=== PATIENT | male | born 1950 | race Caucasian/White ===

== ENCOUNTER 2019-07-18 10:32 | Inpatient (IN) | payer MEDICARE ==
--- NOTE | 2019-07-18 10:51 | ED.PDOC ---
History of Present Illness - General Stated Complaint: swollen testicles Time Seen by Provider: 07/18/19 10:44 Source: patient, RN notes reviewed, Vital Signs reviewed, family Exam Limitations: no limitations Additional Information: this is a 68-year-old gentleman who presents to the emergency room with complaints of swollen testicles. He was going to the clinic and was sent here. He has not been seen in 30 years for any health issues. He states that approximately one month ago he began having swelling in his feet and thought that it may be gout. He started altering his diet and then noticed that in the last 2 weeks he began having abdominal swelling. Today he is most concerned because his scrotum has been swollen. He denies any difficulty with urination currently. His aopkvguo-xw-hdm who is with him today has also noticed that his eyes were getting yellow in the past month. The patient lives alone and has 2 sons and is currently . He is retired from the construction field. He admits to drinking alcohol daily until about 2 months ago. He oftentimes drank in the mornings as well. His alcohol of choice was vodka. He hasn't smoked in over 20 years. He denies any pain currently and denies having recent fever or chills. - History of Present Illness Allergies/Adverse Reactions: Allergies NO KNOWN ALLERGY Allergy (Verified 07/18/19 10:47) Home Medications: Ambulatory Orders NK 07/18/19 Review of Systems - Review of Systems Constitutional: States: malaise. Denies: chills, fever EENTM: States: no symptoms reported, other - family noticed eyes were turning yellow Respiratory: States: no symptoms reported. Denies: cough, orthopnea, short of breath, wheezing Cardiology: States: edema. Denies: chest pain, palpitations, syncope Gastrointestinal/Abdominal: States: diarrhea - just this morning. Denies: abdominal pain, nausea, vomiting Genitourinary: States: other - scrotal swelling. Denies: discharge, frequency, pain Musculoskeletal: Denies: joint pain, joint swelling, muscle pain, muscle stiffness Skin: States: change in color Neurological: States: no symptoms reported Endocrine: States: unexplained weight gain, other - approximately 20 pounds Hematologic/Lymphatic: States: no symptoms reported All other Systems: Reviewed and Negative Family Medical History - Family History Mother Family History: No Known Physical Exam - Physical Exam General Appearance: Alert, No apparent distress Eyes, Ears, Nose, Throat Exam: PERRL/EOMI, scleral icterus (L), other - oropharynx is dry Neck: non-tender, full range of motion, supple, normal inspection Cardiovascular/Respiratory: regular rate, rhythm, no M/R/G, normal peripheral pulses, normal breath sounds, no respiratory distress Gastrointestinal/Abdominal: normal bowel sounds, no pulsatile mass, distended, other - noted ascites Rectal Exam: deferred Male Genital Exam: other - marked scrotal swelling, penis is retracted Back Exam: normal inspection, no CVA tenderness, no vertebral tenderness Extremity: pedal edema, swelling, other - 3+ pitting edema bilaterally Neurologic: cap coverer II-XII nml as tested, no motor/sensory deficits, alert, normal mood/affect, oriented x 3 Skin Exam: warm/dry, jaundice - mild Lymphatic: no adenopathy Progress - Progress Progress: 07/18/19 14:08 discussed everything with the patient and his family. All results are back now. Appears that the primary etiology of his issues is the liver. More than likely alcoholic liver disease. The prognosis and timeframe for which consultations will occur. Smith Abreu nurse practitioner has agreed to admit to the hospital. Get further diuresis. Beckman catheter will need to be inserted. I've ordered an ammonia level on him as well. - Results/Orders Results/Orders: Laboratory Tests 07/18/19 07/18/19 07/18/19 11:30 11:30 12:10 WBC 10.5 RBC 3.82 L Hgb 12.6 L Hct 38.1 L MCV 99.7 H MCH 33.1 H MCHC 33.2 RDW 14.2 Plt Count 205 MPV 7.8 Absolute Neuts (auto) Not Reportable Absolute Lymphs (auto) Not Reportable Absolute Monos (auto) Not Reportable Absolute Eos (auto) Not Reportable Neutrophils % Not Reportable Neutrophils % (Manual) 87.0 H Lymphocytes % Not Reportable Lymphocytes % (Manual) 8.0 Monocytes % Not Reportable Monocytes % (Manual) 5.0 Eosinophils % Not Reportable Basophils % Not Reportable Toxic Granulation 2+ Platelet Estimate Normal Sodium 130 L Potassium 3.0 L Chloride 90 L Carbon Dioxide 24 Anion Gap 19.0 H BUN 10 Creatinine 0.77 BUN/Creatinine Ratio 13.0 Random Glucose 102 Serum Osmolality 260.0 L Lactic Acid Calcium 8.6 Total Bilirubin 3.5 H* AST 64 H ALT 29 Alkaline Phosphatase 172 H Serum Total Protein 6.9 Albumin 2.9 L Globulin 4.0 H Albumin/Globulin Ratio 0.7 L Lipase 17 L Urine Color Urine Appearance Urine pH Ur Specific [place] Urine Protein Urine Glucose (UA) Urine Ketones Urine Blood Urine Nitrite Urine Bilirubin Urine Urobilinogen Ur Leukocyte Esterase Urine RBC Urine WBC Ur Epithelial Cells Urine Bacteria Hyaline Casts Urine Mucus 07/18/19 07/18/19 12:10 13:00 WBC RBC Hgb Hct MCV MCH MCHC RDW Plt Count MPV Absolute Neuts (auto) Absolute Lymphs (auto) Absolute Monos (auto) Absolute Eos (auto) Neutrophils % Neutrophils % (Manual) Lymphocytes % Lymphocytes % (Manual) Monocytes % Monocytes % (Manual) Eosinophils % Basophils % Toxic Granulation Platelet Estimate Sodium Potassium Chloride Carbon Dioxide Anion Gap BUN Creatinine BUN/Creatinine Ratio Random Glucose Serum Osmolality Lactic Acid 2.8 H* Calcium Total Bilirubin AST ALT Alkaline Phosphatase Serum Total Protein Albumin Globulin Albumin/Globulin Ratio Lipase Urine Color Yellow Urine Appearance Clear Urine pH 7.5 Ur Specific [place] 1.015 Urine Protein Negative Urine Glucose (UA) Negative Urine Ketones Trace Urine Blood Negative Urine Nitrite Negative Urine Bilirubin Small H Urine Urobilinogen 0.2 Ur Leukocyte Esterase Negative Urine RBC 0-1 Urine WBC 1-3 Ur Epithelial Cells 0-1 Urine Bacteria Rare Hyaline Casts 0-1 Urine Mucus Trace IMPRESSION: 1. Large volume of ascites in the abdomen and pelvis with displacement of peritoneal and retroperitoneal structures. No evidence of hemorrhage. 2. Average to small size of the liver with enlarged left lobe relative to the right lobe, steatosis, and partial lobulation of the capsule could represent cirrhosis. Possible gastric and lower esophageal varices. 3. 5 mm stone in the midline collecting system of the left kidney with no signs of obstruction. No bowel obstruction. Distal colonic diverticulosis with no complications. 4. Large bilateral inguinal hernias containing ascites. Inferior extent determined. 5. Significant canal and bilateral foraminal narrowing at L5- S1 with spondylosis. Electronically signed by: Augusto Del Cid MD 07/18/2019 1:14 PM MUD ENGINEER Departure - Departure Clinical Impression: Ascites of liver, Alcoholic cirrhosis of liver with ascites, Hypokalemia, Hyponatremia Disposition: Admit Patient Condition: Fair Referrals: MAISHA ECHEVARRIA IV, SALES EXPERT [Primary Care Provider] - 1-2 Weeks Home Medications: Ambulatory Orders NK 07/18/19 Decision To Admit - Decistion To Admit Decision to Admit Date: 07/18/19 Decision to Admit Time: 14:11
[2019-07-18] MEDS ORDERED: FUROSEMIDE INJ 40 MG/4 ML VIAL IV ONE (11:12)
--- NOTE | 2019-07-18 12:54 | RAD ---
EXAM DESCRIPTION: Chest,1 View: CR/DR/XR. CLINICAL HISTORY: 68 years Male sob COMPARISON: CT scan of abdomen and pelvis on this visit. TECHNIQUE: ONE VIEW PORTABLE. 1141 hours AP, upright position. FINDINGS: Bilateral lung volumes are decreased. Bilateral basilar atelectasis. Bronchovascular markings are crowded in heart appears enlarged but this may be artifactual due to poor inspiratory effort. Pulmonary vascularity is not increased. No pleural effusion or pneumothorax. No acute bony thoracic abnormality. IMPRESSION: Limited study due to poor inspiratory effort. Atelectasis in the bases. No definite infiltrate or effusion. Pulmonary vascularity is not increased. No pulmonary edema. Electronically signed by: Augusto Del Cid MD 07/18/2019 12:52 PM AUTO MECHANIC APPRENTICE
--- NOTE | 2019-07-18 13:15 | CT ---
EXAM DESCRIPTION: Abdoment/Pelvis w/o Contrast: Computed Tomography. CLINICAL HISTORY: 68 years Male ascites, . Abdominal pain and distention. COMPARISON: Portable chest x-ray today TECHNIQUE: Spiral-axial scans 5 x 5 mm intervals through the abdomen and pelvis without oral or IV contrast. Coronal and sagittal 2.0 mm reconstructions. Total Exam DLP: 1421.5 mGy-cm. This exam was performed according to our departmental CT dose-optimization program which includes automated exposure control, adjustment of the mA and/or kV according to patient size and/or use of iterative reconstruction technique; to reduce radiation dose to as low as reasonably achievable (ALARA). FINDINGS: Mesentery: Ascitic fluid in all 4 quadrants of the abdomen and in the midline anterior pelvis in the anterior peritoneal reflection. Abdominal organs in the peritoneal cavity are displaced into the midline. No free air. Fascial thickening adjacent fatty stranding throughout. Lung bases and pleura: Bilateral small pleural effusions. Bibasilar atelectasis more on the left. Bilateral pleural-parenchymal scarring in the lower lobes. Diffuse coronary artery atherosclerotic calcification. Included thoracic aorta with atherosclerotic calcification. No significant cardiac enlargement. Possible esophageal varices. Liver, stomach, spleen, and adrenal glands: Craniocaudal dimension right lobe liver 14.9 cm. Left lobe almost this largest the right lobe. Sporadic lobulation of the liver capsule. Heterogeneous fatty density of the liver. The "caudate lobe" posterior to the saray hepatis shows minimal low-density with other areas of low-density most likely fatty sparing. Small gastric hiatal hernia. Possible gastric varices. Adrenal glands and spleen negative findings. Pancreas, Gallbladder, and Ducts: Gallbladder with radiodense francis slightly dilated. Pancreatic duct not well seen. Diffuse low-density of the pancreas. Kidneys and Ureters: 4.7 x 5 mm stone in the mid collecting system of the left kidney with no hydronephrosis. Minimal pararenal stranding. Normal caliber of the included left ureter. No radiodense stones or hydronephrosis left kidney with no radiodense stones or hydronephrosis. Left ureter is unremarkable. Aorta: Moderate atherosclerotic calcification of the aorta with normal caliber of the outer margin and atherosclerotic calcification of the major branch vessels extending into the bilateral common iliac arteries. Small Bowel: Small bowel is displaced into the midline with edema in the mesentery. Gas predominantly in the anterior segments. No significant distention or air-fluid levels. Terminal Ileum/Cecum: Slightly displaced toward the midline. Normal caliber cecum and TI. Appendix not seen. Colon: Displaced intraperitoneal segments along with other intraperitoneal organs. Minimal fecal matter which has heterogeneous radiodensity. Diverticula in the mid descending colon sigmoid containing radiodense fecal matter. None moderate redundancy of the sigmoid colon. Fluid in the cul-de-sac is displacing the retroperitoneal rectum. Pelvic Organs: No significant distention of the urinary bladder with no radiodense stones. Prostate gland abutting the base of the urinary bladder and the seminal vesicles. Spine and Bony Pelvis: Minimal spondylosis included lower thoracic disc spaces with canal and foraminal narrowing. Advanced spondylosis L5-S1 with significant canal and bilateral foraminal narrowing. Abdominal Wall/Back Soft Tissues: Bilateral large fatty hernias containing peritoneal fat and fluid. Diastases of the umbilicus containing fluid but no bowel. IMPRESSION: 1. Large volume of ascites in the abdomen and pelvis with displacement of peritoneal and retroperitoneal structures. No evidence of hemorrhage. 2. Average to small size of the liver with enlarged left lobe relative to the right lobe, steatosis, and partial lobulation of the capsule could represent cirrhosis. Possible gastric and lower esophageal varices. 3. 5 mm stone in the midline collecting system of the left kidney with no signs of obstruction. No bowel obstruction. Distal colonic diverticulosis with no complications. 4. Large bilateral inguinal hernias containing ascites. Inferior extent determined. 5. Significant canal and bilateral foraminal narrowing at L5-S1 with spondylosis. Electronically signed by: Augusto Del Cid MD 07/18/2019 1:14 PM TRACK ANNOUNCER
--- NOTE | 2019-07-18 14:28 | HP ---
SUPERVISING PHYSICIAN: Gorge Meyer MD CHIEF COMPLAINT: Lower extremity edema, swelling of testicles and increasing shortness of breath. HISTORY OF PRESENT ILLNESS: Mr. Celeste is a 68-year-old, male patient that presented to the Emergency Room complaining of swollen testicles. He endorsed that he gone to the walk-in clinic with Madhu Mares and after examination, he was sent to the Emergency Room for evaluation. He does note that he has not seen a primary care provider in well over 25 to 30 years. He first noted that he had swelling about a month ago in his feet and was concerned it might be gout. He started changing his diet and then noticed in the last two weeks that his abdomen had started swelling severely and he is becoming short of breath. His biggest concern was swelling in the scrotum. He denied actual difficulty urinating. His wkppfbhw-lw-cob noted about a month ago he started showing yellow around his eyes. He does have a significant history of alcohol consumption, particularly vodka, but quit drinking about two months previously when he first started noting that his eyes were turning yellow. He reports that he generally drank alcohol in the form of vodka on a daily basis starting early in the morning. He denied any actual issues trying to stop drinking too much previously. He has not smoked since his early 20s. He denies any actual abdominal pain, chills, fevers, chest pain, nausea or vomiting. He does note he has been having some diarrhea since his belly has been increased in size. CT of his abdomen and pelvis without contrast showed a large volume of ascites in the abdomen and pelvis with displacement of the peritoneal and retroperitoneal structures, but no evidence of any hemorrhage. The liver was noted to be small to average in size with enlarged left lobe relative to the right lobe with noted steatosis and partial lobulation of the capsule, likely representing cirrhosis. There was note of possible gastric and lower esophageal varices. The patient denies any actual hematemesis or hematochezia. He is also noted to have large bilateral inguinal hernias containing ascites. His lab work showed elevated bilirubin of 3.5 with elevated AST at 64, but a normal ALT normal at 29. Alkaline phosphatase was elevated at 172. He had a normal ammonia level and lipase level. He was hyponatremic with sodium of 130 with potassium 3.0 with mildly elevated anion gap at 19. Creatinine was 0.77. Given the findings on CT with the increased swelling and increased ascites, the patient is going to be admitted for further workup evaluation and possible paracentesis in the morning by Dr. Oates, awaiting surgical consultation. He is admitted in stable condition. PAST MEDICAL HISTORY: He is not currently seen by any primary care physician with no significant medical history other than alcohol abuse. PAST SURGICAL HISTORY: 1. Tonsillectomy as a child. HOME MEDICATIONS: No current prescription medications or [id number]-azmkccm medications. ALLERGIES: NO LISTED DRUG OR FOOD ALLERGIES. FAMILY HISTORY: His father is at age 87 with history of cardiovascular disease and congestive heart failure. His mother is living at age 82 and has history of lupus and cardiovascular disease. He has one brother with an unknown history and he has one sister that had a stroke at age 62 and is currently living. He has two sons that are both reported healthy. SOCIAL HISTORY: The patient lives by himself in [place], [place]. He does have a significant alcohol abuse history in the form of vodka typically starting early in the morning. His last reported alcohol consumption was two months previously. He has a very remote history of tobacco use in his 20s. He is a retired [employer] Res[employer]ist. He is . He has two socwdnfxe-iw-hil that check on him on a regular basis. He did work in construction prior to retiring. REVIEW OF SYSTEMS: CONSTITUTIONAL: Negative for any fevers, chills. He does have some generalized malaise and increased weight gain due to the developing ascites. HEENT: He has noted some yellowing of his eyes, but denies any vision changes, headaches, sore throat, nasal congestion, earaches. RESPIRATORY: Denies coughing, orthopnea, shortness of breath, wheezing, but does have some dyspnea on exertion. CARDIOVASCULAR: Noted developing bilateral pitting edema to the lower extremities within the last several months. Negative for chest pain, palpitations or syncopal episodes. GASTROINTESTINAL: As noted in history of present illness, some diarrhea, increasing abdominal girth due to ascites. He denies any abdominal pain, nausea or vomiting. GENITOURINARY: As noted in history of present illness, acute swelling of his scrotum. He denies any pain, difficulty urinating, dysuria, hematuria, polyuria. PHYSICAL EXAMINATION: HEENT: Oropharynx is pink with mildly dry mucous membranes. There was noted bilateral scleral icterus. NECK: Supple, nontender with full range of motion. RESPIRATORY: Chest sounds clear, just diminished towards the bases. No obvious rhonchi, wheezing or rales. CARDIOVASCULAR: Regular rate and rhythm without any appreciable murmurs, gallops, or rubs. ABDOMEN: Notably distended and firm with positive bowel sounds. No rebound tenderness, no point tenderness. EXTREMITIES: Bilateral 3+ pitting edema to lower extremities with notable erythema to the bilateral wang areas. Warm to touch. GENITOURINARY: He has marked scrotal swelling with retracted penis, but Beckman catheter is in place. No signs of cellulitis or infection. BACK: No CVA or vertebral tenderness. NEUROLOGIC: The patient is oriented times three. Cranial nerves II-XII are grossly intact. There are no obvious motor deficits. SKIN: Warm and dry with mild jaundice. LYMPHATICS: Without any obvious adenopathy. LABORATORY: White count 10,500 without a left shift. Hemoglobin 12.6, hematocrit 38.1, RBC indices indicating a hyperchromic/microcytic presentation, platelet count 205,000. Coagulation studies showed PT 12.7, INR 1.27, normal PTT at 28.3. Chemistry showed sodium 130, potassium 3.0, chloride 90, carbon dioxide 24, anion gap slightly elevated at 29, creatinine 0.7, blood sugar 102. Lactic acid slightly elevated at 2.8, bilirubin elevated at 3.5, AST 64, alkaline phosphatase 172, normal ALT 29. Ammonia level normal at 20, lipase normal at 17. RADIOLOGY: Abdominopelvic CT without contrast showed large volume of ascites in the abdomen and pelvis with displacement of the peritoneal and retroperitoneal structures with no evidence of hemorrhage. There was note of an average to small liver with enlarged left lobe compared to the right with steatosis and partial lobulation of the capsule, probably representing cirrhosis with possible gastric and lower esophageal varices. There was note of a 5 mm stone in the midline collecting system of the left kidney with no signs of obstruction, no bowel obstruction, distal colonic diverticulosis with no complication. There is note of large bilateral inguinal hernias containing ascites with inferior extent determined. Please see that report for details. He also had a chest x-ray and per radiologic interpretation showed limited study due to poor inspiratory effort with atelectasis in the bases with no definite infiltrate or effusion. Pulmonary vascularity was not increased. No pulmonary edema. ASSESSMENT: 1. Ascites likely due to alcoholic cirrhosis of the liver resulting in some scrotal edema and bilateral lower extremity edema. 2. Bilateral lower extremity edema with developing cellulitis. 3. Electrolyte imbalance to include hyponatremia, hypokalemia and increased anion gap with a mild lactic acidosis due to #1. 4. History of chronic alcohol abuse. PLAN: Mr. Celeste is going to be admitted for initiation of treatment for worsening cellulitis and testicular edema. We will start him on some spironolactone 100 mg daily along with 40 mg Lasix IV. I requested a surgical consult with Dr. Oates for paracentesis for both therapeutic and diagnostic reasons. I started him on Rocephin 2 grams given the degree of ascites along with mild cellulitis of lower extremities. If his cellulitis does not improve, we may need to start him on some vancomycin, but we will hold off and reassess in the morning. He does have a Beckman catheter in place. We will monitor his I&O closely. He will be on a reduced sodium diet. He will be on DVT prophylaxis per protocol starting tomorrow after the paracentesis. I anticipate his length of stay to be at least two to three days. I did discuss at length with the patient and his pidhwvugt-uh-aqr that he needs to get established with a primary care provider, either here in town or provider of choice. They are going to look at going to [facility] as well as he will need to be established with a GI specialist of the ongoing ascites and liver issues. Hopefully we can improve his symptoms in the next 24 to 48 hours and get him home to have close followup. Until we can discharge to outpatient management, we will continue to monitor and treat as needed. #[id number] [facility]
[2019-07-18] MEDS ORDERED: SODIUM CHLORIDE 0.9% (FLUSH) 10 ML SYG IV PRN (17:12)
[2019-07-18] MEDS ORDERED: SPIRONOLACTONE 25 MG TAB PO ONE (17:16)
[2019-07-18] MEDS ORDERED: IV SET AND CAP CHANGE INJ INJ SCH (17:30)
[2019-07-18] MEDS ORDERED: SODIUM CHL 0.9% 50ML MIN-BAG+ 50 ML IVPB ONE (18:25)
[2019-07-18] MEDS: cefTRIAXone SODIUM 2 GM in SODIUM CHL 0.9% 100ML MINI-BAG 100 ML IVPB SCH (18:28)
[2019-07-19] MEDS ORDERED: POTASSIUM CHLORIDE 20 MEQ TAB PO ONE (09:08)
[2019-07-19] MEDS ORDERED: POTASSIUM CHLORIDE 20 MEQ TAB ONE (09:28)
--- NOTE | 2019-07-19 15:15 | US ---
EXAM DESCRIPTION: Paracentesis: Ultrasound CLINICAL HISTORY: ascites COMPARISON: CT scan abdomen and pelvis 18 July 2019. TECHNIQUE: The procedure was performed by Dr. Oates. Sterile preparation and technique.. Skin was marked overlying the left lower quadrant fluid collection, where needle was introduced. 8.4 L removed. FINDINGS: Images before the procedure show large amount of ascites in all 4 quadrants. Images taken during the procedure show the echogenic needle in the left lower quadrant and collection with significant reduction of fluid in the quadrant, by the end of the procedure. IMPRESSION: Successful, ultrasound-guided paracentesis. Over 8 L of fluid was removed. Electronically signed by: Augusto Del Cid MD 07/19/2019 3:14 PM LEAN ENGINEER
--- NOTE | 2019-07-19 16:00 | CONS ---
REFERRING PHYSICIAN: Hospitalist Service HISTORY OF PRESENT ILLNESS: The patient is a 68 year-old male who presented with a swollen scrotum. He notes also that his abdomen is distended. He has swelling in his legs and he has had increasing shortness of breath. He has not seen a doctor in many years. He has a long history of alcohol abuse, which he quit 2 months ago. Family notes that his eyes turned yellow about a month ago. The CT scan of his abdomen showed steatosis of the liver with lobulation and a significant amount of ascites and bilateral inguinal hernias obtaining ascites. PAST MEDICAL HISTORY: Unremarkable. He had a tonsillectomy as a child. CURRENT MEDICATIONS: None. ALLERGIES: No known drug allergies. FAMILY HISTORY: Positive for cardiovascular disease, lupus and sister who had a stroke. His sons are healthy. SOCIAL HISTORY: The patient lives by himself in [facility]. He is the father of two adult children. Until 2 months ago, he drank alcohol on a daily basis, usually vodka. He has smoked only as a young person. He is . He worked in construction, has retired. REVIEW OF SYSTEMS: GENERAL: There has been weight gain, no fever or chills. HEENT: He has had no changes in his vision, headache, no coughing. RESPIRATORY: Minimal shortness of breath or wheezing but he does become short of breath with any exercise HEART: Regular rate and rhythm. ABDOMEN: No change in his bowel habit, blood per rectum, melanotic stools and no bloody vomitus. EXTREMITIES: Bilateral pitting edema. PHYSICAL EXAMINATION: GENERAL: The patient is awake, alert and cooperative, in no acute distress. HEENT: Sclera are icteric. Oropharynx is pink with moist mucous membranes. NECK: Without adenopathy. CHEST: There is equal breath sounds bilaterally. HEART: Regular rate and rhythm. ABDOMEN: Soft, firm, positive fluid wave. Positive bowel sounds. EXTREMITIES: 3+ pitting edema bilaterally in the lower extremities. : Exam reveals scrotal swelling with fluid in his scrotum. Testicles are not easily able to be examined. NEUROLOGIC: The patient is awake and oriented. BACK: Without CVA tenderness. LABORATORY: White count on admission 10.5,000 with hemoglobin 12, hematocrit 38. He had a hyperchromatic microcytic presentation. Platelet count 205,000, coag studies show PT elevated at 12.7 and INR at 1.27. Creatinine 0.7, potassium 3, bilirubin 3.5. AST and ALT are both elevated. Ammonia level normal. as was lipase. IMPRESSION: Cirrhosis, likely alcoholic, possibly secondary to fatty infiltration of liver and mesh but with symptomatic ascites. The risks, benefits, and alternatives to both diagnostic and therapeutic thoracentesis is discussed with the patient and his family and we will proceed later today. #[id number] [facility]
--- NOTE | 2019-07-19 16:39 | OP ---
PREOPERATIVE DIAGNOSIS: Symptomatic ascites secondary to cirrhosis of uncertain etiology. POSTOPERATIVE DIAGNOSIS: Symptomatic ascites secondary to cirrhosis of uncertain etiology. PROCEDURE: Ultrasound guided paracentesis. SURGEON: Williams Oates MD MEDICAL DETAILIST: None. ANESTHESIA: Local infiltration of 1% lidocaine. INDICATION: The patient is a 68 year-old male who presented with bilateral edema, swollen scrotum and extended abdomen with weight gain. Workup has revealed ascites and what appears to be cirrhosis. He has had no previous healthcare over the last 20 to 25 years. I have been asked to provide diagnostic therapeutic paracentesis and after the risks, benefits, and alternatives to the procedure, this is performed at the bedside. FINDINGS: The ultrasound revealed large pockets of acetic fluid which were easily entered using the paracentesis needle. We removed 8400 cc of fluid which was sent for cytology, etc. The patient tolerated the procedure well. Post procedure ultrasound revealed a significant decrease in fluid at this time. PROCEDURE: After the patient is placed in the supine position with the head of the bed slightly elevated, the abdomen was inspected with the ultrasound probe which was then been marked and prepped medially to the ultrasound probe. It is draped. When this was done, local infiltration of anesthesia was obtained and the 22-gauge needle was introduced under direct vision into the peritoneal cavity. Fluid is obtained. A stab wound was made with a #11 blade and the paracentesis catheter is introduced. Again, under direct ultrasound guidance into the pool of fluid, the catheter was advanced and the needle is withdrawn,. It was connected to the 3-way stopcock and approximately 180 cc of fluid was removed this way, some as sent for the different study. At that point, connected to suction canisters remaining fluid is removed without significant difficulty. When this was done, the patient tolerated the procedure well and the catheter was removed. Pressure was held to obliterate the space and for hemostasis. A Band-Aid was applied. Specimens were sent for examination. The patient tolerated the procedure well with no blood loss. #[id number] [facility]
[2019-07-19] MEDS ORDERED: SODIUM CHL 0.9% 100ML MINI-BAG 100 ML IVPB ONE (17:33)
[2019-07-19] MEDS: cefTRIAXone SODIUM 2 GM in SODIUM CHL 0.9% 100ML MINI-BAG 100 ML IVPB SCH (17:36)
--- NOTE | 2019-07-20 08:08 | PN ---
SUPERVISING PHYSICIAN: Gorge Meyer MD DATE: 07/19/19 SUBJECTIVE: The patient is lying in bed asleep. He awakens easily. He has no complaints of nausea or vomiting, but he does complain of that his abdomen hurts. We discussed his thoracentesis by Dr. Oates today. Otherwise, no shortness of breath or chest pain. OBJECTIVE: VITAL SIGNS: Temperature 98.2. Heart rate 89. Blood pressure 124/98. Respiratory rate 20. O2 saturation 95% on 2 liters. RESPIRATORY: Diminished at the bases, otherwise clear to auscultation. CARDIAC: Regular rate and rhythm. GASTROINTESTINAL: Abdomen is rounded, somewhat distended and firm. Bowel sounds are positive. NEUROLOGIC: Awake, alert and oriented times three. LABORATORY: WBCs 9.1, hemoglobin 10.9, hematocrit 32.2. ESR 35. Sodium continues to be low at 131 with potassium 3.3, chloride 92. Serum osmolality 262.5 with repeat lactic acid of 1. Calcium 8.2, total bilirubin 2.7, C- reactive protein 1.9, AST 51, ALT 25, alkaline phosphatase 151. All other labs and films have been reviewed via the EMR. ASSESSMENT: 1. Ascites likely due to alcoholic cirrhosis of the liver resulting in some scrotal edema and bilateral lower extremity edema. 2. Bilateral lower extremity edema with developing cellulitis. He has an elevated ESR and C-reactive protein. 3. Electrolyte imbalance to include hyponatremia, hypokalemia and increased anion gap. He initially had lactic acidosis on admission, but is now normalized. 4. History of chronic alcohol abuse. PLAN: We will continue present supportive care. I have given him some potassium supplementation as well as put him on fluid restriction. Dr. Oates, general surgeon, will do a thoracentesis this afternoon. I will defer to him as far as the procedure is concerned. I have repeated his lab in the morning. His lower extremities are somewhat improved and I will not add vancomycin as yet. I will assess his clinical response tomorrow to decide if I need to add an additional antibiotic. We will continue to monitor the patient closely and follow as needed. #[id number] [facility]
[2019-07-20 12:25] VITALS: BP 126/76; TEMP 97.6; O2SAT 95
--- NOTE | 2019-07-26 11:20 | DS ---
SUPERVISING PHYSICIAN: Gorge Meyer MD DISCHARGE DIAGNOSIS: 1. Ascites likely due to alcoholic cirrhosis of the liver resulting in some scrotal edema and bilateral lower extremity edema. 2. Bilateral lower extremity edema with developing cellulitis. He has an elevated ESR and C-reactive protein. 3. Electrolyte imbalance to include hyponatremia, hypokalemia and increased anion gap. He initially had lactic acidosis on admission, but is now normalized. 4. History of chronic alcohol abuse. HISTORY OF PRESENT ILLNESS: This is a 68-year-old male patient that came to the Emergency Room complaining of swollen testicles. He saw Madhu Mares at the walk- in clinic and after examination, he was sent to the Emergency Room for evaluation. He did admit that he had not seen a primary care provider in 25 to 30 years. He noted that the swelling started about a month ago in his feet and was concerned it might be gout. He started changing his diet and then noticed in the last two weeks that his abdomen had started swelling and he became severely short of breath. The swelling of the scrotum was his #1 complaint at the time of admission to the ER. He denied difficulty urinating. His szluestr-ji-vkh said he had had some jaundice in his eyes starting about a month ago. He does have a significant history of alcohol consumption, particularly vodka, but quit drinking about two months ago when he noticed that his eyes were turning yellow. He drank alcohol vodka on a daily basis starting early in the morning. He did not have any problems trying to stop drinking. He also had some diarrhea as well as a distended abdomen. CT of his abdomen and pelvis without contrast showed a large volume of ascites in the abdomen and pelvis with displacement of the peritoneal and retroperitoneal structures, but no evidence of any hemorrhage. The liver was noted to be small to average in size with enlarged left lobe relative to the right lobe with noted steatosis and partial lobulation of the capsule, likely representing cirrhosis. There was note of possible gastric and lower esophageal varices. The patient denies any actual hematemesis or hematochezia. He was also noted to have large bilateral inguinal hernias containing ascites. His lab work showed elevated bilirubin of 3.5 with elevated AST at 64, but a normal ALT at 29. Alkaline phosphatase was elevated at 172. He had a normal ammonia level and lipase level. He was hyponatremic with sodium of 130 with potassium 3.0 with mildly elevated anion gap at 19. Creatinine was 0.77. The patient was admitted to the hospital for further workup and possible paracentesis by Dr. Oates, general surgeon. HOSPITAL COURSE: On examination, he was noted to have cellulitis of the lower extremities with edema as well as testicular edema and significant ascites. He was started on some spironolactone daily along with [address] Oates was consulted for paracentesis for both therapeutic and diagnostic reasons. He was also given Rocephin due to the ascites as well as the cellulitis of the lower extremities. Beckman catheter was in placed and I&Os were monitored closely. It was also discussed the patient needs to establish care with a primary care physician. A post hospital appointment was obtained with Dr. Parsons at [facility]. He was also started on some lisinopril for his blood pressure. His cellulitis of the lower extremities improved. Dr. Oates did a paracentesis on him and about 180 mL of fluid was removed and sent for studies. Overnight, his symptoms improved. Scrotal edema improved. He will be discharged home today in stable condition with close followup with Dr. Parsons. LABORATORY: CBC remained stable during his stay. Discharge labs showed sodium 131, potassium 3.8, chloride 97, BUN 10, creatinine 0.61, lactic acid improved to 1. Calcium 8.2, magnesium 1.8, bilirubin improved from 3.5 to 2.3. AST 52, ALT 24, alkaline phosphatase 146. Urinalysis was unremarkable. Abdominal fluid is still pending. Abdominopelvic CT as per history of present illness. Chest x-ray shows limited study due to poor inspiratory effort, atelectasis in the bases, but no definite infiltrate or effusion. Pulmonary vascular is not increased, no pulmonary edema. DISCHARGE PLAN: The patient will be discharged home in stable condition. He is to resume his previous diet and increase his activity as tolerated. He is to followup with Dr. Parsons on 07/26/19 at 2:15 PM at [facility]. I did not continue his spironolactone. I will leave that up to Dr. Parsons, but he was continued on 7 days of cephalexin, given some furosemide as well as potassium. He is to return to the hospital or followup with Dr. Parsons for any problems or complications. He will need to see a GI specialist in consultation. DISCHARGE MEDICATIONS: 1. Furosemide. 2. Cephalexin. 3. Potassium chloride. #[id number] [facility]
== END 2019-07-20 15:40 | disposition home or self-care (01) | DRG 433 ==
LOC: ER 10:32 → OBSVTOIN 14:26 → MS 14:26
PROVIDERS: ADMIT Nurse Practitioner Family; ATTEND Nurse Practitioner Acute Care
PROC: 0W9G3ZZ Drainage of Peritoneal Cavity, Percutaneous Approach (ICD-10-PCS; principal; 2019-07-18)
DX: K70.31 Alcoholic cirrhosis of liver with ascites (principal); L03.115 Cellulitis of right lower limb; L03.116 Cellulitis of left lower limb; E87.1 Hypo-osmolality and hyponatremia; E87.2 Acidosis; E87.6 Hypokalemia; N50.89 Other specified disorders of the male genital organs; K40.20 Bilateral inguinal hernia, without obstruction or gangrene, not specified as recurrent; Z87.891 Personal history of nicotine dependence; Z87.898 Personal history of other specified conditions

== ENCOUNTER → 2019-08-03 | Outpatient (CLI) | payer OTHER | LOC: LAB.O 07:58 | PROVIDERS: ATTEND Family Medicine | DX: Z00.00 Encounter for general adult medical examination without abnormal findings (principal); K74.60 Unspecified cirrhosis of liver; R18.8 Other ascites; L03.119 Cellulitis of unspecified part of limb ==

== ENCOUNTER → 2019-08-25 | Outpatient (CLI) | payer OTHER | LOC: LAB.O 08:12 | PROVIDERS: ATTEND Family Medicine | DX: K70.31 Alcoholic cirrhosis of liver with ascites (principal); R60.0 Localized edema ==

== ENCOUNTER → 2020-05-15 | Outpatient (CLI) | payer MEDICARE | LOC: YCFC.O 12:55 | PROVIDERS: ATTEND Family Medicine | DX: K70.31 Alcoholic cirrhosis of liver with ascites (principal) ==

== ENCOUNTER → 2020-05-18 | Outpatient (CLI) | payer MEDICARE ==
--- NOTE | 2020-05-18 13:18 | OP ---
DATE OF PROCEDURE: 05/18/20 PREOPERATIVE DIAGNOSIS: 1. Massive ascites causing respiratory distress secondary to hepatic failure secondary to hepatic cirrhosis secondary to alcohol. POSTOPERATIVE DIAGNOSIS: 1. Massive ascites causing respiratory distress secondary to hepatic failure secondary to hepatic cirrhosis secondary to alcohol. PROCEDURE: 1. Sonographically guided paracentesis, therapeutic. SURGEON: Williams Oates MD. REHABILITATION CONSULTANT: None. ANESTHESIA: Local infiltration of 1% lidocaine. INDICATION: The patient is a 49-year-old male with alcoholic cirrhosis with massive ascites. He has been drained before, almost a year ago when he was in respiratory distress in the hospital. At this time, he has just become quite uncomfortable, is having some difficulty with breathing and is brought in for an elective therapeutic paracentesis. He is to see gastroenterology next week. FINDINGS: 11,500 mL of slightly bile-tinged, straw-colored fluid, clear was obtained. PROCEDURE: The patient was placed in supine position with the head of the bed slightly elevated. His left abdomen was inspected along with his right lower quadrant using ultrasound. An area of open fluid was identified. The abdomen was prepped and draped appropriately. Local infiltration of anesthesia was obtained with 1% lidocaine. A 22-gauge needle was introduced under ultrasound guidance into the fluid cavity. Fluid was easily aspirated. At this point, a stab was made with an 11 blade and the paracentesis catheter was introduced under direct vision into the fluid collection. The needle was withdrawn. The catheter was advanced. A total of 200 mL was aspirated using the three-way stopcock and syringe. When this was, it was connective to the suction canisters and remaining fluid was removed without difficulty. The patient tolerated the procedure well. There was no significant blood loss. #[id number] [facility]
--- NOTE | 2020-05-18 16:37 | US ---
EXAM DESCRIPTION: Paracentesis: : ULTRASOUND. CLINICAL HISTORY: 69 years Male ALCOHOLIC CIRRHOSIS OF LIVER WITH ASCITES COMPARISON: None Available. TECHNIQUE: Procedure performed by referring physician Dr. Oates after ultrasound performed to localize ascites fluid prior to paracentesis, using grayscale mode. Largest fluid pocket found in the right lower quadrant abdomen. Overlying skin was marked. No complicating process is demonstrated. 10 L of fluid removed. Please refer to physician's procedure note for specific details. 8 permanent images of this procedure are stored in the patient's medical record. Echogenic needle demonstrated in the fluid collection on one image. IMPRESSION: Paracentesis performed by Dr. Oates after ultrasound planning. Electronically signed by: Augusto Del Cid MD 05/18/2020 4:35 PM CDT
== END ==
LOC: US 10:56
PROVIDERS: ATTEND Surgery
DX: K70.31 Alcoholic cirrhosis of liver with ascites (principal)

== ENCOUNTER 2020-08-09 17:07 | Observation (INO) | payer MEDICARE ==
[2020-08-09] MEDS ORDERED: SODIUM CHLORIDE 0.9% 500ML 500 ML IVS ONE (18:13)
[2020-08-09] MEDS ORDERED: SODIUM CHLORIDE 0.9% (FLUSH) 10 ML SYG IV PRN ×2 (18:13→21:58)
[2020-08-09] MEDS ORDERED: ONDANSETRON INJ 4 MG/2 ML VIAL IV ONE (18:13)
--- NOTE | 2020-08-09 20:13 | ED.PDOC ---
History of Present Illness - General Chief Complaint: General Stated Complaint: dizzy, vomiting, diarrhea Time Seen by Provider: 08/09/20 18:13 Source: patient, RN notes reviewed, Vital Signs reviewed Exam Limitations: no limitations - History of Present Illness Initial Comments: Patient is a 70-year-old white male who presents with near syncope today. His [id number] is here with him. Patient was at home and felt like he was going to pass out and sat down so he would not. He has been feeling weak and dizzy since that time. This happened a couple of hours prior to arrival. Patient was increased on his Lasix and spironolactone 3 to 4 weeks ago by his GI doctor. Patient has a history of cirrhosis. His last drink was over 1 year ago. Patient denied any chest pain or shortness of breath. He does complain of dizziness but no headache. Patient complains of generalized weakness. Patient was supposed to get follow-up lab work from his last appointment and see his GI doctor on August 01 but he accomplished neither task. His dizziness and weakness gets worse when he tries to stand up or exert himself. Is better when he lays down. It is intermittent, waxing and waning in intensity. Timing/Duration: 1-3 hours Severity: moderate Improving Factors: rest Worsening Factors: movement Associated Symptoms: diaphoresis, malaise, nausea/vomiting - nausea, syncope - near syncope, weakness Allergies/Adverse Reactions: Allergies NO KNOWN ALLERGY Allergy (Verified 08/09/20 17:47) Home Medications: Ambulatory Orders Furosemide [Lasix] 40 mg PO DAILY 08/09/20 Spironolactone 100 mg PO DAILY 08/09/20 Review of Systems - Review of Systems Constitutional: States: see HPI, diaphoresis, malaise, weakness. Denies: chills, fever EENTM: States: see HPI, blurred vision. Denies: eye pain, double vision Respiratory: States: no symptoms reported. Denies: cough, short of breath, stridor, wheezing Cardiology: States: see HPI, syncope. Denies: chest pain, palpitations Gastrointestinal/Abdominal: States: see HPI, diarrhea, nausea. Denies: abdominal pain, vomiting Genitourinary: States: no symptoms reported. Denies: dysuria, frequency Musculoskeletal: States: no symptoms reported. Denies: back pain, joint pain, joint swelling, neck pain Skin: States: no symptoms reported, change in color - pale. Denies: rash Neurological: States: see HPI, weakness. Denies: headache, numbness, tingling, tremors Endocrine: States: no symptoms reported. Denies: increased hunger, increased thirst, increased urine Hematologic/Lymphatic: States: no symptoms reported. Denies: blood clots, easy bleeding All other Systems: Reviewed and Negative, No Change from Baseline Past Medical History (General) - Patient Medical History Hx Seizures: No Hx Stroke: No Hx Dementia: No Hx Asthma: No Hx of COPD: No Hx Cardiac Disorders: No Hx Congestive Heart Failure: No Hx Pacemaker: No Hx Hypertension: No Hx Thyroid Disease: No Hx Diabetes: No Hx Renal Disease: No Hx MRSA: No Hx Other PMH: Yes - cirrhosis - Social History Hx Tobacco Use: Yes Hx Alcohol Use: No Hx Substance Use: No Hx Depression: No Hx Physical Abuse: No Hx Emotional Abuse: No Family Medical History - Family History Mother Family History: No Known Physical Exam - Physical Exam General Appearance: Alert, Anxious, Frail, Obvious distress, Ill Appearing, U nkempt Eye Exam: bilateral normal Ears, Nose, Throat: hearing grossly normal, normal pharynx - except dry MM Neck: non-tender, full range of motion, supple Respiratory: chest non-tender, lungs clear, normal breath sounds, no respiratory distress, no accessory muscle use Cardiovascular/Chest: normal peripheral pulses, regular rate, rhythm, no edema, no gallop, no JVD, systolic murmur Peripheral Pulses: radial,right: 2+, radial,left: 2+ Gastrointestinal/Abdominal: normal bowel sounds, soft, tenderness - mild discomfort, diffuse. No fluid wave. Back Exam: normal inspection, no CVA tenderness, no vertebral tenderness Extremity: normal range of motion, non-tender, normal inspection, no pedal edema Neurologic: screenplay writer II-XII nml as tested, no motor/sensory deficits, alert, normal mood/affect, oriented x 3 Skin Exam: pallor Lymphatic: no adenopathy Progress - Progress Progress: Differential diagnosis: Near syncope, dehydration, acute MT, anemia among others. 08/09/20 21:22 Patient with significant anemia that is symptomatic. Patient is heme positive in his stool so I suspect he has had a slow GI bleed for a while. Probably secondary to his chronic disease and cirrhosis. Plan on admission to the hospital for transfusion and further evaluation. I discussed this with the patient and his [id number] and they voiced understanding and agreement. I discussed this with Jennifer Tao NP, and she accepts the patient for admission. Christopher Canela M.D. #[id number] - Results/Orders Results/Orders: EKG performed 09 August 2020 at 1836 hrs.: Normal sinus rhythm with sinus arrhythmia at 84 bpm, normal axis deviation, no ST or T wave changes concerning for ischemia, normal EKG. No comparison EKG available at this time. 08/09/20 17:17 ED Intent to Admit Routine 08/09/20 18:00 PACKED CELLS,LR Stat TYPE AND SCREEN Stat 08/09/20 18:13 Sodium Chloride 0.9% (Flush) [Saline Flush Syringe] 10 ml IV PRN PRN URINALYSIS Stat 08/09/20 18:14 URINALYSIS Stat 08/09/20 18:15 EKG STAT Laboratory Results - last 24 hr 08/09/20 08/09/20 08/09/20 18:00 18:29 18:29 WBC 6.6 RBC 2.67 L Hgb 7.7 L* Hct 22.3 L MCV 83.6 MCH 28.8 MCHC 34.5 RDW 16.4 H Plt Count 141 MPV 7.4 Absolute Neuts (auto) 5.40 Absolute Lymphs (auto) 0.50 L Absolute Monos (auto) 0.70 Absolute Eos (auto) 0.00 Absolute Basos (auto) 0.00 Neutrophils % 82.1 H Lymphocytes % 7.0 L Monocytes % 10.0 H Eosinophils % 0.5 L Basophils % 0.4 PT INR PTT (SP) Sodium 130 L Potassium 4.8 Chloride 94 L Carbon Dioxide 25 Anion Gap 15.8 BUN 41 H Creatinine 0.81 BUN/Creatinine Ratio 50.6 H Random Glucose 104 Serum Osmolality 271.2 L Calcium 9.0 Total Bilirubin 0.6 Direct Bilirubin 0.2 Indirect Bilirubin 0.4 AST 31 ALT 31 Alkaline Phosphatase 104 Serum Total Protein 7.7 Albumin 3.5 Lipase 44 Stool Occult Blood Patient ABO/Rh A POSITIVE Antibody Screen Negative Crossmatch See Detail 08/09/20 08/09/20 19:15 19:15 WBC RBC Hgb Hct MCV MCH MCHC RDW Plt Count MPV Absolute Neuts (auto) Absolute Lymphs (auto) Absolute Monos (auto) Absolute Eos (auto) Absolute Basos (auto) Neutrophils % Lymphocytes % Monocytes % Eosinophils % Basophils % PT 12.1 H INR 1.22 H PTT (SP) 24.6 Sodium Potassium Chloride Carbon Dioxide Anion Gap BUN Creatinine BUN/Creatinine Ratio Random Glucose Serum Osmolality Calcium Total Bilirubin Direct Bilirubin Indirect Bilirubin AST ALT Alkaline Phosphatase Serum Total Protein Albumin Lipase Stool Occult Blood Positive H Patient ABO/Rh Antibody Screen Crossmatch Vital Signs 08/09/20 08/09/20 08/09/20 17:37 17:38 19:08 Temperature 98.5 F Pulse Rate [ 86 82 85 Right Radial] Respiratory 20 16 Rate Blood Pressure 99/55 100/58 [Right Arm] O2 Sat by Pulse 99 99 Oximetry 08/09/20 08/09/20 08/09/20 20:12 20:24 20:42 Temperature 97.9 F 97.6 F Pulse Rate [ 78 80 65 Right Radial] Respiratory 14 18 18 Rate Blood Pressure 102/59 91/52 88/55 [Right Arm] O2 Sat by Pulse 100 100 98 Oximetry Departure - Departure Clinical Impression: Near syncope, Symptomatic anemia, Dehydration Time of Disposition: 20:00 Disposition: Admit Patient Condition: Fair Diet: low salt diet Activity: walking as tolerated Home Medications: Ambulatory Orders Furosemide [Lasix] 40 mg PO DAILY 08/09/20 Spironolactone 100 mg PO DAILY 08/09/20
[2020-08-09] MEDS ORDERED: SODIUM CHLORIDE 0.9% 500ML 500 ML ONE (20:20)
[2020-08-09] MEDS ORDERED: diphenhydrAMINE HCL 50 MG/ML VIAL IV ONE (21:53)
[2020-08-09] MEDS ORDERED: FUROSEMIDE INJ 40 MG/4 ML VIAL IV ONE (21:53)
[2020-08-09] MEDS ORDERED: ACETAMINOPHEN 325 MG TAB PO ONE (21:53)
[2020-08-09] MEDS ORDERED: ONDANSETRON INJ 4 MG/2 ML VIAL IV PRN (21:58)
[2020-08-09] MEDS ORDERED: IV SET AND CAP CHANGE INJ INJ SCH (22:00)
[2020-08-09] MEDS ORDERED: SODIUM CHLORIDE 0.9% 500ML 500 ML IVS SCH (22:00)
[2020-08-10] MEDS ORDERED: PANTOPRAZOLE SODIUM IV 40 MG VIAL IV SCH (06:30)
[2020-08-10] MEDS ORDERED: SODIUM CHLORIDE 0.9% 500ML 500 ML IVS ONE (06:36)
--- NOTE | 2020-08-10 07:37 | CT ---
CT abdomen and pelvis with contrast TECHNIQUE: Axial images were taken through the abdomen and pelvis after the administration of IV and oral contrast.All CT scans at this facility use dose modulation, iterative reconstruction, and/or weight based dosing when appropriate to reduce radiation dose to as low as reasonably achievable HISTORY: GI bleed; cirrhosis; COMPARISON:July 18, 2019 FINDINGS: The liver is heterogeneous and nodular with hypertrophy of the caudate lobe. Findings suggest cirrhosis similar to prior study. The spleen, pancreas, adrenals are normal. No evidence of cholecystitis. A small nonobstructing left renal calcification is again noted. Tiny subcentimeter right renal cyst image 42. No follow-up required. Ascites is present throughout the abdomen and pelvis overall significantly decreased from prior. The previously seen pleural effusions have resolved. No evidence of bowel obstruction or inflammation. Again seen is an umbilical fat hernia. There are bilateral inguinal fat hernias. Joint space narrowing L5-S1. Impression: . Cirrhotic appearing liver. Ascites significantly decreased from prior. Umbilical and inguinal fat hernias. Electronically signed by: Marbella Ellis MD 08/10/2020 7:36 AM [facility]
[2020-08-10 12:46] VITALS: BP 100/60; TEMP 97.8
[2020-08-10 14:09] VITALS: O2SAT 98
--- NOTE | 2020-08-29 11:20 | SSS ---
SUPERVISING PHYSICIAN: Jeremy Ortiz MD DISCHARGE DIAGNOSIS: 1. Symptomatic anemia, most likely due to chronic disease. 2. Alcoholism in a long-term drinker. He quit about one year ago. 3. Alcoholic cirrhosis. HISTORY OF PRESENT ILLNESS: This is a 70-year-old male patient who presented to the Emergency Room with near syncope. He did not pass out as his [id number] was with him. He had been feeling weak and dizzy for the last 24 hours. He is on Lasix and spironolactone that had been increased several weeks ago and he was unsure as to what his exact dosing should be. He does have a history of cirrhosis and alcoholism, although his last drink was over a year ago. He was supposed to have a followup with his GI doctor the first part of July with lab work, but he did not do so. His admitting vital signs showed temperature 98.5, heart rate 82, blood pressure 99/55, respiratory rate 20, O2 saturation 99% on room air. WBCs were 6.6 with hemoglobin 7.7, hematocrit 22.3. Electrolytes showed sodium 130, potassium 4.8, chloride 93, carbon dioxide 25, BUN 41, creatinine 0.81. Liver enzymes were within normal limits. Urinalysis was unremarkable. Occult blood was positive. He was typed and crossed for 2 units of packed red blood cells and placed in observation in the hospital due to symptomatic anemia. PAST MEDICAL HISTORY: 1. Cirrhosis of the liver. 2. Alcoholism, although he quit a year ago. 3. Tobacco abuse. PAST SURGICAL HISTORY: 1. Tonsillectomy as a child. OUTPATIENT MEDICATIONS: Per the EMR and awaiting verification. There are some discrepancies on dosing. ALLERGIES: NO KNOWN DRUG ALLERGIES. FAMILY HISTORY: Positive for cardiovascular disease, congestive heart failure, lupus, CVA. SOCIAL HISTORY: He lives in [facility]. He quit drinking alcohol about a year ago. He previously smoked, but has not smoked in quite a few years. There is no history of illicit drug use. REVIEW OF SYSTEMS: GENERAL: Positive for weakness, fatigue. Negative for fever or weight changes. HEENT: Negative for sinus symptoms, ear pain, vision changes or sore throat. RESPIRATORY: Negative for wheezing, coughing or shortness of breath. CARDIAC: Negative for chest pain, palpitations or tachycardia. GASTROINTESTINAL: As per history of present illness. GENITOURINARY: Negative for hematuria, dysuria or polyuria. SKIN: Negative for lesions or rashes. NEUROLOGIC: Positive for weakness, dizziness, near syncopal episode. Negative for headache or seizures. PHYSICAL EXAMINATION: VITAL SIGNS: Temperature 79.8, heart rate 63, blood pressure 100/60, respiratory rate 18, O2 saturation 100% on room air. GENERAL: This is a 70-year-old male patient who is lying in his hospital bed. He is in no acute distress. HEENT: Normocephalic, atraumatic. Pupils are equal and reactive. Oropharynx is clear. NECK: Supple without mass. RESPIRATORY: Essentially clear to auscultation bilaterally. CARDIOVASCULAR: Regular rate and rhythm. GASTROINTESTINAL: Abdomen is soft, nondistended, nontender. Bowel sounds are positive. NEUROLOGIC: Awake, alert and oriented times three. Cranial nerves II-XII are grossly intact as tested. HOSPITAL COURSE: The patient received 2 liters of packed red blood cells. His clinical status improved after that. His vital signs stabilized. His labs stabilizes. There was still some question as to what his actual medication dosages were of his spironolactone and Lasix. He was started on 20 mg of Lasix and 50 mg of spironolactone daily and he had been on double that. I encouraged him strongly to followup with his GI doctor as well as Dr. Parsons. He will be discharged home today in stable condition. DISCHARGE PLAN: The patient will be discharged home in stable condition. He is to resume his previous diet and increase his activity as tolerated. He is to go to the lab on 08/14/20 for followup H&H prior his appointment with Dr. Parsons and Dr. Parsons can get him not his GI doctor as soon as possible. He also can make sure that his medication dosings have been clarified. He is to return to the hospital or followup with Dr. Parsons for any problems or complications. DISCHARGE MEDICATIONS: 1. Furosemide 20 mg daily. 2. Spironolactone 50 mg daily. #[id number] [facility]
== END 2020-08-10 15:30 | disposition home or self-care (01) ==
LOC: ER 17:07 → MS 20:50
PROVIDERS: ADMIT Nurse Practitioner Acute Care; ATTEND Nurse Practitioner Acute Care
DX: D64.9 Anemia, unspecified (principal); K92.1 Melena; K70.31 Alcoholic cirrhosis of liver with ascites; F10.21 Alcohol dependence, in remission; R55 Syncope and collapse; E86.0 Dehydration; Z79.899 Other long term (current) drug therapy; Z87.891 Personal history of nicotine dependence
CPT/HCPCS: 96374; 96375 ×2; J1200; J1940; J2405; J7040 ×3; 80048; 82270; 80053; 82105; 36415 ×5; 86039; 81001; 80076; 86255; 85025 ×2; 82728; 83690; 83735; 85730; 85610; 83540; 83550; 74178; P9016 ×2; 86922; 86900; 86901; 86850; 36430; 94760 ×2; 99285; 93005; G0378; 83520; 87635

== ENCOUNTER → 2020-08-14 | Outpatient (CLI) | payer MEDICARE | LOC: YCFC.O 08:27 | PROVIDERS: ATTEND Family Medicine | DX: D64.9 Anemia, unspecified (principal); K74.60 Unspecified cirrhosis of liver ==